=== PATIENT | female | born 1940 | race Caucasian/White ===

== ENCOUNTER 2018-08-30 14:09 | Emergency (ER) | payer OTHER ==
[2018-08-30] MEDS: HYDROmorphONE 0.5 MG/0.5 ML SYG IM (14:39)
[2018-08-30] MEDS: ONDANSETRON (ODT) 4 MG TAB ODT (14:39)
[2018-08-30] MEDS: SOD CHLORIDE 0.9% 1,000 ML IV (16:28)
[2018-08-30] MEDS: MECLIZINE 12.5 MG TAB PO (18:23)
== END 2018-08-30 21:09 | disposition home or self-care (01) ==
LOC: E/R 21:09
DX: S22.080A Wedge compression fracture of T11-T12 vertebra, initial encounter for closed fracture (principal); S32.010A Wedge compression fracture of first lumbar vertebra, initial encounter for closed fracture; W01.0XXA Fall on same level from slipping, tripping and stumbling without subsequent striking against object, initial encounter; Y92.9 Unspecified place or not applicable
CPT/HCPCS: 70450; 72131; 96372; 99285-25